=== PATIENT | male | born 1940 | race Caucasian/White ===

== ENCOUNTER 2016-12-19 06:50 | Emergency (ER) | payer MEDICARE, OTHER ==
[~2016-12-19] VITALS: Ht 188 cm; Wt 81.6 kg
[2016-12-19 06:53] VITALS: BP 125/77
== END 2016-12-19 09:09 | disposition home or self-care (01) ==
LOC: ED 09:03
DX: J02.9 Acute pharyngitis, unspecified (principal); K40.90 Unilateral inguinal hernia, without obstruction or gangrene, not specified as recurrent
CPT/HCPCS: 99283